=== PATIENT | female | born 1990 | race Caucasian/White ===

== ENCOUNTER 2018-12-22 11:13 | Inpatient (IN) | payer MEDICAID ==
[2018-12-22 12:19] VITALS: BMI 30.1
[2018-12-22] MEDS ORDERED: OXYTOCIN 10 UNIT/ML 1 ML VIAL IM PRN (12:34)
[2018-12-22] MEDS ORDERED: METHYLERGONOVINE 0.2 MG/ML 1 ML AMP IM PRN (12:34)
[2018-12-22] MEDS ORDERED: CARBOPROST TROMETHAMINE 250 MCG/ML 1 ML AMP IM PRN (12:34)
[2018-12-22] MEDS ORDERED: CLINDAMYCIN 900 MG in DEXTROSE 5% IN WATER 50 ML IVPB STA ×2 (12:34)
[2018-12-22] MEDS ORDERED: LIDOCAINE 0.5% (PF) 5 MG/ML (50 ML SDV) SQ PRN (12:34)
[2018-12-22] MEDS ORDERED: TERBUTALINE 1 MG/ML VIAL SQ PRN (12:34)
[2018-12-22] MEDS: LACTATED RINGERS 1,000 ML IV SCH ×2 (13:05→21:42)
[2018-12-22] MEDS: OXYTOCIN 30 UNITS/500 ML NS 30 UNIT in SALINE 1 500ML.BAG IV SCH ×2 (13:12→16:15)
[2018-12-22 13:19] LABS: Basophils % (A) 0 %; Eosinophils # (A) 0.1 k/uL (0-0.7); Eosinophils % (A) 0 %; HCT 34.2 % (34.0-46.0); HGB 11.6 gm/dL (11.4-16.0); Lymphocytes # (A) 1.4 k/uL (1.0-4.8); Lymphocytes % (A) 10 %; MCH 29.9 pg (25.0-35.0); MCHC 33.9 g/dL (31.0-37.0); MCV 88.3 fL (80.0-100.0); Monocytes % (A) 7 %; Neutrophils # (A) 11.5 k/uL (1.3-7.7); Neutrophils % (A) 82 %; Platelet Count 364 k/uL (150-450); RBC 3.87 m/uL (3.80-5.40); RDW 14.6 % (11.5-15.5); WBC 14.1 k/uL (3.8-10.6)
[2018-12-22] MEDS ORDERED: HYDROcodone/APAP 7.5-325MG 1 EACH TAB PO PRN (15:56)
[2018-12-22] MEDS ORDERED: diphenhydrAMINE 25 MG CAP PO PRN (15:56)
[2018-12-22] MEDS ORDERED: WITCH HAZEL 1 EACH MED..PAD TOPICAL PRN (15:56)
[2018-12-22] MEDS ORDERED: ACETAMINOPHEN TAB 325 MG TAB PO PRN (15:56)
[2018-12-22] MEDS ORDERED: HYDROCORTISONE 2.5% RECTAL CREAM 30 GM TUBE RECTAL PRN (15:56)
[2018-12-22] MEDS ORDERED: diphenhydrAMINE 50 MG/ML 1 ML VIAL IVP PRN ×2 (15:56)
[2018-12-22] MEDS ORDERED: ZOLPIDEM 5 MG TAB PO PRN (15:56)
[2018-12-22] MEDS ORDERED: BENZOCAINE/MENTHOL SPRAY 1 GM/SPRAY AEROSOL TOPICAL PRN (15:56)
[2018-12-22] MEDS ORDERED: IBUPROFEN 600 MG TAB PO PRN (15:56)
[2018-12-22] MEDS ORDERED: LANOLIN CREAM 5 GM TUBE TOPICAL PRN (15:56)
[2018-12-22] MEDS ORDERED: HYDROcodone/APAP 5-325MG 1 EACH TAB PO PRN (15:56)
[2018-12-22] MEDS ORDERED: diphenhydrAMINE 50 MG CAP PO PRN (15:56)
[2018-12-22] MEDS ORDERED: SIMETHICONE 80 MG CHEWABLE PO PRN (15:56)
[2018-12-22] MEDS ORDERED: OXYTOCIN 20 UNITS/1000 ML NS 1,000 ML IV SCH (16:00)
--- NOTE | 2018-12-22 16:03 | P.HPOB ---
History of Present Illness H&P Date: 12/22/18 Chief Complaint: 41-3/7 weeks, spontaneous rupture of membranes The patient is a 28-year-old 3 para 2001 admitted at 41-3/7 weeks as established by last menstrual period and confirmed by 9 week ultrasound. She presents in early labor with all signs reassuring having been found with documented spontaneous rupture of membranes of light meconium-stained fluid. Her has been uncomplicated though she is Rh- and received RhoGAM at 28 weeks. She also has a history of previous macrosomic . She had been found with a circumvallate placenta during her 19 week ultrasound but declined any extra testing. She also was then found to be group B strep positive at 35 weeks. Obstetrical history: 3 para 2 scissors or 2 with 2 term vaginal deliveries last of which was for a 10 lbs. 4 oz. baby. Current statistics are listed in history present illness. EDC of 12/12/2018 was established by last menstrual period and confirmed by 9 week ultrasound. Laboratory workup demonstrates a blood type of B- with a negative antibody s creen. Rubella status is immune. The remainder of the laboratory workup was within normal limits. Early Glucola as well as second trimester Glucola were within normal limits. Group B strep status is positive. Gynecologic history: Unremarkable with no history of any infections to include STDs. Review of Systems Review of systems is confined to history of present illness. Past Medical History Past Medical History: No Reported History Additional Past Medical History / Comment(s): History of migraine headaches with vertigo. History of Any Multi-Drug Resistant Organisms: None Reported Past Surgical History: No Surgical Hx Reported Additional Past Surgical History / Comment(s): tubes age 2 Past Anesthesia/Blood Transfusion Reactions: No Reported Reaction Past Psychological History: No Psychological Hx Reported Smoking Status: Never smoker Past Alcohol Use History: None Reported Past Drug Use History: None Reported - Past Family History Mother Family Medical History: No Reported History Medications and Allergies Home Medications Medication Instructions Recorded Confirmed Type Ynn-Lyoe-Qomuw Acid 1 cap PO DAILY 07/11/14 05/20/16 History [-U Capsule (formulary)] Allergies Allergy/AdvReac Type Severity Reaction Status Date / Time cefprozil [From Cefzil] Allergy Rash/Hives Verified 12/22/18 11:38 Exam Vital Signs Temp Pulse Resp BP Pulse Ox 12/22/18 11:56 96.5 F L 85 18 128/73 100 12/22/18 11:49 96.5 F L 86 18 128/73 100 Intake and Output 12/22/18 12/22/18 12/22/18 06:59 14:59 22:59 Other: Weight 89.811 kg In general, this is a well-developed, well-nourished white female in discomfort secondary to active labor. Her heart has a regular rhythm and rate without murmur. Her lungs are clear to auscultation bilaterally in all infante. Her abdomen is gravid, nondistended, has normal active bowel sounds, soft, nontender, and without any palpable masses aside from the uterine fundus. Her extremities are without any cyanosis, clubbing, or edema and are nontender to palpation bilaterally. Digital cervical examination in presentation demonstrated her cervix to 3-4 synovators dilated, 50% effaced, with the vertex in presentation at -2 station. Spontaneous rupture of membranes is documented noting light meconium-stained fluid. Results Result Diagrams: 12/22/18 13:00 Abnormal Lab Results - Last 24 Hours (Table) 12/22/18 Range/Units 13:00 WBC 14.1 H (3.8-10.6) k/uL Neutrophils # 11.5 H (1.3-7.7) k/uL Assessment and Plan (1) Active labor at term Current Visit: Yes Status: Acute Code(s): SGI5825 - SNOMED Code(s): 87299889 (2) Group B streptococcal infection in Current Visit: Yes Status: Acute Code(s): O98.819 - OTH MATERNAL INFEC/PARASTC DISEASES COMP PREG, UNSP TRI SNOMED Code(s): 251019776 Plan: The patient has been admitted for management of labor. She has requested relative nonintervention. She will have close maternal and surveillance and expectant management will be practice. Antibody prophylaxis was started for group B strep positivity. She is a good candidate for IV or epidural analgesia should she choose.
--- NOTE | 2018-12-22 16:07 | P.PROBDLV ---
Vaginal Delivery Note - . Vaginal Delivery Note: The patient is a 28-year-old 3 para 2 scissors or 2 admitted at 41-3/7 weeks by good dating parameters. She is admitted with documented spontaneous rupture of membranes with light meconium-stained fluid and in early labor. Her has been essentially uncomplicated though she is Rh- and received RhoGAM at 28 weeks. She also is known to have a circumvallate placenta but opted not to have extra testing. She is known to be group B strep positive. As result, she had antibiotic prophylaxis started. She made fairly rapid progress through the active phase of labor to complete and +2 station. She pushed over the course of 1 contraction to a normal spontaneous vaginal delivery of a viable 8 lbs. 4 oz. baby boy with Apgars of 9 at 1 minute and 9 at 5 minutes delivered in the right occiput anterior position. Thorough suction of the nose and mouth were carried out on the perineum and the infant was immediately vigorous. After several minutes of waiting for the placenta, it was noted that it was somewhat adherent to the anterior uterine wall. Partial manual removal was carried out in the placenta was delivered somewhat macerated with possibly some of the membranes left behind. The cord was noted to be centrally inserted and it was felt that all of the placental tissue had been removed manually. There was initially some slightly increased bleeding following delivery of the placenta which was noted to be secondary to atony. Once the uterus was noted to be well contracted, bleeding was minimal. Estimated blood loss for the entire case was approximately 350 mL. There were no complications aside from the need for manual extraction of the placenta. There was a small first-degree midline perineal laceration likely over the site of a previous laceration which was repaired with a single [id number] stitch of 3-0 chromic catgut. All sponge, instrument, and needle counts were correct. Both mother and infant are resting comfortably in recovery.
[2018-12-22] MEDS ORDERED: CLINDAMYCIN 900 MG in DEXTROSE 5% IN WATER 50 ML IVPB SCH ×2 (21:00)
[2018-12-22 21:09] LABS: Basophils % (A) 0 %; Eosinophils % (A) 0 %; HGB 10.5 gm/dL (11.4-16.0); Lymphocytes # (A) 1.3 k/uL (1.0-4.8); Lymphocytes % (A) 8 %; MCH 30.6 pg (25.0-35.0); MCHC 34.9 g/dL (31.0-37.0); MCV 87.8 fL (80.0-100.0); Mean Platelet Volume 7.7; Monocytes # (A) 0.9 k/uL (0-1.0); Monocytes % (A) 5 %; Neutrophils # (A) 14.9 k/uL (1.3-7.7); Neutrophils % (A) 86 %; Platelet Count 345 k/uL (150-450); RBC 3.42 m/uL (3.80-5.40); RDW 15.2 % (11.5-15.5); WBC 17.4 k/uL (3.8-10.6)
[2018-12-22] MEDS: METHYLERGONOVINE 0.2 MG TAB PO SCH (21:41)
[2018-12-22] MEDS: SENNOSIDES-DOCUSATE SODIUM 1 EACH TAB PO SCH (21:42)
[2018-12-23] MEDS: LACTATED RINGERS 1,000 ML IV SCH ×2 (06:51→23:01)
[2018-12-23 07:27] LABS: Basophils % (A) 0 %; Eosinophils # (A) 0.1 k/uL (0-0.7); Eosinophils % (A) 1 %; HCT 28.9 % (34.0-46.0); Lymphocytes # (A) 1.6 k/uL (1.0-4.8); Lymphocytes % (A) 15 %; MCH 30.6 pg (25.0-35.0); MCHC 34.7 g/dL (31.0-37.0); MCV 88.2 fL (80.0-100.0); Mean Platelet Volume 7.3; Monocytes # (A) 0.8 k/uL (0-1.0); Monocytes % (A) 7 %; Neutrophils # (A) 8.1 k/uL (1.3-7.7); Neutrophils % (A) 75 %; Platelet Count 344 k/uL (150-450); RBC 3.27 m/uL (3.80-5.40); RDW 15.3 % (11.5-15.5); WBC 10.7 k/uL (3.8-10.6)
[2018-12-23] MEDS: METHYLERGONOVINE 0.2 MG TAB PO SCH ×3 (08:35→23:02)
--- NOTE | 2018-12-23 08:37 | P.PNOBGVD ---
Subjective - Subjective Interval history: Had fairly moderate bleeding last evening until approximately 9:00, bleeding has significantly resolved since. Denies any signs or symptoms of orthostasis. Patient reports: Reports appetite normal, Reports voiding normally, Reports pain well controlled, Reports ambulating normally : doing well, nursing well Objective - Latest Vital Signs Latest vital signs: Vital Signs Temp Pulse Resp BP Pulse Ox 12/23/18 07:52 98.0 F 87 20 113/71 12/23/18 04:00 98.9 F 87 18 109/63 12/22/18 23:46 98.0 F 99 14 113/73 98 12/22/18 20:00 98.6 F 109 H 16 121/76 98 12/22/18 17:50 97.7 F 106 H 18 131/70 12/22/18 17:20 98.4 F 100 18 123/75 12/22/18 16:50 98.9 F 115 H 18 121/72 12/22/18 16:35 98.5 F 113 H 18 133/73 12/22/18 16:20 98.9 F 100 18 120/69 12/22/18 16:05 98.4 F 105 H 18 128/56 12/22/18 15:50 99.0 F 114 H 18 134/58 12/22/18 11:56 96.5 F L 85 18 128/73 100 12/22/18 11:49 96.5 F L 86 18 128/73 100 Intake and Output 12/22/18 12/23/18 12/23/18 22:59 06:59 14:59 Output Total 150 Balance -150 Output: Urine 150 Other: # Voids 1 1 - Exam Extremities: Present: normal Abdomen: Present: normal appearance, soft Uterus: Present: normal, firm (The uterine fundus is tonic and nontender well below the umbilicus.) - Labs Labs: Abnormal Lab Results - Last 24 Hours (Table) 12/22/18 12/22/18 12/23/18 Range/Units 13:00 20:29 06:25 WBC 14.1 H 17.4 H 10.7 H (3.8-10.6) k/uL RBC 3.42 L 3.27 L (3.80-5.40) m/uL Hgb 10.5 L 10.0 L (11.4-16.0) gm/dL Hct 30.0 L 28.9 L (34.0-46.0) % Neutrophils # 11.5 H 14.9 H 8.1 H (1.3-7.7) k/uL Assessment and Plan (1) Active labor at term Current Visit: Yes Status: Acute Code(s): JAE7400 - SNOMED Code(s): 19752375 (2) Group B streptococcal infection in Current Visit: Yes Status: Acute Code(s): O98.819 - OTH MATERNAL INFEC/PARASTC DISEASES COMP PREG, UNSP TRI SNOMED Code(s): 853908127 (3) Normal spontaneous vaginal delivery Current Visit: Yes Status: Acute Code(s): O80 - ENCOUNTER FOR FULL-TERM UNCOMPLICATED DELIVERY SNOMED Code(s): 99536044 (4) Placenta accreta Current Visit: Yes Status: Acute Code(s): O43.219 - PLACENTA ACCRETA, UNSPECIFIED TRIMESTER SNOMED Code(s): 77104053 Plan: Bleeding seems to have resolved with continued use of uterotonics. We will continue Methergine 3 times daily while in the hospital. Consideration could be made for continuing as an outpatient for several days as well. The infant is to stay here for 48 hours secondary to insufficient antibiotic prophylaxis for group B strep. Continue routine care and I anticipate discharge home tomorrow. Hemoglobin has remained stable and need not be repeated.
[2018-12-23] MEDS: SENNOSIDES-DOCUSATE SODIUM 1 EACH TAB PO SCH ×2 (08:39→23:01)
[2018-12-23] MEDS ORDERED: Rhogam IMMUNE GLOBULIN 1,500 UNIT/1 ML IM ONE (09:26)
--- NOTE | 2018-12-24 08:54 | P.DS ---
Providers Date of admission: 12/22/18 11:49 Expected date of discharge: 12/24/18 Attending physician: Tommie Waller Primary care physician: Stated None - Discharge Diagnosis(es) (1) Active labor at term Current Visit: Yes Status: Acute (2) Group B streptococcal infection in Current Visit: Yes Status: Acute (3) Normal spontaneous vaginal delivery Current Visit: Yes Status: Acute (4) Placenta accreta Current Visit: Yes Status: Acute Hospital Course: The patient is a 28-year-old 3 para 2001 admitted at 41-3/7 weeks by good dating parameters. She is admitted with documented spontaneous rupture of membranes with thin meconium-stained fluid. Her has been uncomplicated though she is Rh- and received RhoGAM at 28 weeks. She also is febrile circumvallate placenta and declined testing. She was additionally group B strep positive. As result, she had antibiotic prophylaxis started and then made fairly rapid progress to the active phase of labor to complete. She pushed over the course of 1 contraction to a normal spontaneous vaginal delivery of a viable 8 lbs. 4 oz. baby boy with Apgars of 9 at 1 minute and 9 at 5 minutes. She did have a placenta that was adherent and required manual extraction and was thought to have some degree of placenta accreta for at least a portion of it. It was felt to be completely removed though it is possible that some membranes remain inside. The patient wouldn't allow no further examination at that time. She did have some ongoing bleeding problems for the first 6-8 hours after delivery which were managed with both IM and by mouth Methergine as well as continued Pitocin. Ultimately, the bleeding resolved almost entirely at approximately 6-8 hour effie. Hemoglobin was stable throughout. She denies any ongoing problems. She was deemed stable for discharge on day #2 was discharged home to follow-up in the office in 6 weeks' time routinely. Discharge instructions included calling for any significantly increased bleeding or foul-smelling lochia, significantly increased fever abdominal pain, perineal complaints, breast complaints, or anything else that concerned her. She was additionally instructed to have nothing in the vagina for at least 6 weeks time to include intercourse. She understood her instructions and agrees to follow up as noted above. Discharge medications included only [id number] analgesic pain medications as well as continued vitamins as she has opted to breast-feed. Maternal blood type is B- and cord blood was sent for evaluation for the necessity of RhoGAM prior to discharge. Rubella status is immune. Procedures: #1. Antibiotic prophylaxis #2. Normal spontaneous vaginal delivery #3. Manual extraction of the placenta #4. Repair of perineal laceration Patient Condition at Discharge: Good Plan - Discharge Summary New Discharge Prescriptions: No Action Wop-Mtbq-Egygj Acid [-U Capsule (formulary)] 1 cap PO DAILY Discharge Medication List Neu-Wvud-Ywmrw Acid [-U Capsule (formulary)] 1 cap PO DAILY 07/11/14 [History] Follow up Appointment(s)/Referral(s): Tommie Waller MD [STAFF PHYSICIAN] - 6 Weeks Discharge Disposition: HOME SELF-CARE
[2018-12-24] MEDS: SENNOSIDES-DOCUSATE SODIUM 1 EACH TAB PO SCH (10:02)
[2018-12-24] MEDS: METHYLERGONOVINE 0.2 MG TAB PO SCH ×2 (10:02→18:29)
[2018-12-24 18:24] VITALS: BP 116/73; PULSE 90; RESP 16; TEMP 98.4
== END 2018-12-24 18:00 | disposition home or self-care (01) | DRG 806 ==
LOC: FBPOP 11:13 → 4FBP 11:49
PROVIDERS: ADMIT Obstetrics & Gynecology; ATTEND Obstetrics & Gynecology
PROC: 10E0XZZ Delivery of Products of Conception, External Approach (ICD-10-PCS; principal; 2018-12-22)
PROC: 10D17Z9 Manual Extraction of Products of Conception, Retained, Via Natural or Artificial Opening (ICD-10-PCS; 2018-12-22)
PROC: 0HQ9XZZ Repair Perineum Skin, External Approach (ICD-10-PCS; 2018-12-22)
PROC: 3E0234Z Introduction of Serum, Toxoid and Vaccine into Muscle, Percutaneous Approach (ICD-10-PCS; 2018-12-23)
DX: O77.0 Labor and delivery complicated by meconium in amniotic fluid (principal); O72.1 Other immediate postpartum hemorrhage; Z37.0 Single live birth; O26.893 Other specified pregnancy related conditions, third trimester; O73.1 Retained portions of placenta and membranes, without hemorrhage; O99.824 Streptococcus B carrier state complicating childbirth; B95.1 Streptococcus, group B, as the cause of diseases classified elsewhere; O70.0 First degree perineal laceration during delivery; O43.119 Circumvallate placenta, unspecified trimester; Z79.899 Other long term (current) drug therapy; Z67.21 Type B blood, Rh negative; Z3A.41 41 weeks gestation of pregnancy; G43.909 Migraine, unspecified, not intractable, without status migrainosus; Z88.1 Allergy status to other antibiotic agents
CPT/HCPCS: 59025; 84112; 85025; 85461; 86850; 86870; 86880; 86900; 86901; 88307; 99213